=== PATIENT | male | born 1985 ===

== ENCOUNTER 2024-11-19 21:16 | Inpatient (IN) | payer OTHER, SELFPAY ==
--- NOTE | ~2024-11-19 | CT_ITS ---
CLINICAL HISTORY: swollen, tender, suspect fx or septic ankle CT of right ankle without contrast. Comparison: None provided Findings: No acute fracture or subluxation. Ankle mortise and talar dome are maintained. Normal osseous mineralization. No lytic or sclerotic osseous lesions. Moderate soft tissue edema versus cellulitis overlying hindfoot predominant along the lateral margin extending superiorly to the level of the ankle. These inflammatory findings appear to be confined within superficial subcutaneous soft tissues without definite extension into deeper ankle compartments. No abscess or loculated fluid collection. No subcutaneous emphysema. No definite erosions. Impression: 1. Extensive edema/cellulitis within superficial soft tissues overlying visualized hindfoot and ankle. 2. No drainable abscess or fluid collection. 3. No soft tissue emphysema. This document has been electronically signed by: Lois White MD on 11/20/2024 00:02:11
[2024-11-19 21:24] VITALS: BP 120/60; BP 135/70; PULSE 112; PULSE 122; RESP 20; TEMP 37.1; O2SAT 96; O2SAT 97; BMI 20.1
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
--- NOTE | 2024-11-19 22:46 | ED_ITS ---
HPI - Extremity Problem General Chief complaint: Extremity Problem Stated complaint: FOOT SWELLING, ANXIETY AFTER DRUG USE Time Seen by Provider: 11/19/24 22:15 History of Present Illness ED Provider: casey HPI Narrative: . The patient can not report any specific injury or exactly when it started. He denies any redness streaking up the leg but feels that the maximal redness and pain is over the dorsal lateral aspect of the foot and ankle. He can not bear any weight you can barely move the ankle with plantar flexion or dorsiflexion. No previous injuries or surgeries to this area he says 39 M poor historian. Reports 2 days of R ankle/foot pain and swelling Related Data Home Medications ?Medication ?Instructions ?Recorded ?Confirmed aripiprazole 10 mg tablet 10 mg PO QAM 11/20/24 clonazepam 0.5 mg tablet 1 mg PO BID PRN anxiety 10/2811/20/24 fluoxetine 10 mg capsule 10 mg PO DAILY 11/20/2410/28 Previous Rx's ?Medication ?Instructions ?Recorded amoxicillin 875 mg-potassium 1 tab PO Q12H 7 days #14 tabs 11/21/24 clavulanate 125 mg tablet doxycycline monohydrate 100 mg 100 mg PO BID 7 days #1 4 tabs 11/21/24 tablet Allergies Allergy/AdvReac Type Severity Reaction Status Date / Time vancomycin Allergy Severe hives Verified 11/20/24 01:32 [facility] Past Medical History Medical History Marijuana use Crack cocaine use Surgical History History of right hip hemiarthroplasty Social History Social History (Updated 11/20/24 @ 01:42 by IVETTE Perez) Household Members: Family Household Members Other:: Mother Housing: House Do you presently have visiting nurse or other home services: No Patient Tobacco Use Status: Former Tobacco user Second Hand Smoke Exposure: No Substance Use Type: Crack/Cocaine and Marijuana service: No Physical Exam 2 Vital Signs: Vital Signs: Last Vital Signs Temp 97.9 F 11/21/24 12:00 Pulse 94 11/21/24 12:00 Resp 16 11/21/24 12:00 BP 136/83 11/21/24 12:00 Pulse Ox 100 11/21/24 12:00 O2 Del Method Room Air 11/21/24 12:00 Oxygen Flow Rate 0 11/20/24 00:30 BMI result Body Mass Index 20.1 Const: Other: EXAM: Gen: Alert, awake, ,well hydrated. Erratic movements , rocking back and forth. He is awake alert communicative. No obvious or clear toxidrome at this time Head: Atraumatic Eyes: Anicteric, Normal conjunctiva. ENT: Moist mucosa, no pallor. ? Neck: Supple. Skin: ?No observable rash or bruising on exposed or examined skin Respiratory: Breathing comfortably, No distress.Clear to auscultation bilaterally, symmetric chest expansion, No wheeze, rales, ronchi. Cardiovascular: Regular rate and rhythm. No murmurs or rub. Well perfused periphery, warm extremities. No edema. ? Abdominal: No FOCAL TENDERNESS. Soft, no objective distension. No palpable masses or obvious organomegaly. ?No guarding, no rebound tenderness or other peritoneal findings. : No flank tenderness. Neuro: Alert. Gross movement of all extremities intact. ? Psych: Calm. Cooperative. MSK: Right ankle: Moderate to severe tenderness and erythema mostly dorsal lateral right foot and ankle over the malleolar region. Even minimal movements attempting plantar flexion and dorsiflexion cause severe pain. Well-perfused digits. No gross deformity or instability of the joint. Compartments soft in the lower extremity Vital signs: See flowsheet Medications Administered Discontinued Medications Generic Name Dose Route Start Last Admin Trade Name Freq PRN Reason Stop Dose Admin Acetaminophen 975 mg 11/19/24 22:35 11/20/24 00:58 Acetaminophen 325 Mg Tablet PO 11/19/24 22:36 Not Given ONCE ONE Aripiprazole 10 mg 11/20/24 12:00 11/21/24 08:44 Aripiprazole 10 Mg Tablet PO 10 mg DAILY DINA Administration Ceftriaxone Sodium 1 gm 11/19/24 22:44 11/20/24 00:32 Ceftriaxone Sodium 1 Gm Vial IVPUSH 11/19/24 22:45 1 gm ONCE ONE Administration Clonazepam 1 mg 11/20/24 11:54 11/21/24 11:52 Clonazepam 1 Mg Tablet PO 1 mg BID PRN Administration Anxiety Enoxaparin Sodium 40 mg 11/20/24 01:15 11/20/24 04:44 Enoxaparin Sodium 40 Mg/0.4 Ml Syringe SUBCUT Not Given BEDTIME DINA Enoxaparin Sodium 40 mg 11/20/24 05:00 11/20/24 20:09 Enoxaparin Sodium 40 Mg/0.4 Ml Syringe SUBCUT 40 mg BEDTIME DINA Administration Fluoxetine HCl 10 mg 11/21/24 09:00 11/21/24 08:44 Fluoxetine Hcl 10 Mg Capsule PO 10 mg DAILY DINA Administration Vancomycin HCl 1,500 mg/ 500 mls @ 333.333 mls/hr 11/19/24 22:44 11/20/24 01:15 Sodium Chloride IV 11/20/24 00:13 Infused ONCE ONE Infusion Linezolid 600 mg in 300 mls @ 300 mls/hr 11/20/24 02:00 11/20/24 03:40 Zyvox/D5w IV Infused Q12H DINA Infusion Acetaminophen 1,000 mg in 100 mls @ 400 mls/hr 11/20/24 01:54 11/20/24 02:29 Ofirmev IV 11/20/24 02:08 Infused ONCE ONE Infusion Clindamycin Phosphate 600 mg in 50 mls @ 100 mls/hr 11/20/24 12:00 11/21/24 12:49 Cleocin IV Infused Q8H DINA Infusion Ibuprofen 600 mg 11/19/24 22:35 11/20/24 00:58 Ibuprofen 600 Mg Tablet PO 11/19/24 22:36 Not Given ONCE ONE Ketamine HCl 63.503 mg 11/19/24 22:41 11/19/24 23:54 Ketamine Hcl/Ns 50 Mg/5 Ml Syringe 1 mg/kg (63.503 mg) 11/19/24 22:42 63.503 mg IVPUSH Administration ONCE ONE Omeprazole 20 mg 11/20/24 06:30 11/21/24 05:41 Omeprazole 20 Mg Capsule.Dr PO 20 mg DAILY@0630 DINA Administration Potassium Chloride 20 meq 11/20/24 09:00 11/21/24 08:44 Potassium Chloride Er 20 Meq Tab.Er.Prt PO 20 meq DAILY DINA Administration Potassium Chloride 40 meq 11/20/24 05:00 11/20/24 06:09 Potassium Chloride Packet 20 Meq Packet PO 11/20/24 05:01 40 meq ONCE ONE Administration Propofol 100 mg 11/19/24 22:41 11/19/24 23:54 Propofol 200 Mg/20 Ml Vial IVPUSH 11/19/24 22:42 100 mg ONCE ONE Administration Sodium Chloride 3 ml 11/20/24 08:00 11/21/24 09:27 0.9 % Sodium Chloride Flush 3 Ml Syringe IVFLUSH 3 ml QSHIFT [facility] Administration Medical Decision Making Medical Decision Making [facility] Narrative: 39-year-old male I a.m. suspicious that the patient has IV drug use history. No clear toxidrome but he is acting bizarre in the ED. significantly elevated leukocytosis severe pain with any ranging of the right ankle with overlying cellulitis makes me suspicious for ankle septic joint. No hemodynamic instability. Well-perfused digits. Could be synovitis. Less likely necrotizing fasciitis given the lack of rapid spread or hemodynamic instability. No thickened fascia on ultrasound. Ultrasound did reveal what appeared to me to be a small ankle effusion attempt was made to aspirate this with minimal fluid only. We will send this for culture as it is bloody and were unlikely to visualize [facility] [employer] coverage for septic arthritis. Splint for comfort Lab Data [facility] Lab Attestation statement: I reviewed the patient's lab results. 11/21/24 05:47 11/21/24 05:47 Labs: Lab Results 11/19/24 11/19/24 11/20/24 Range/Units 22:50 22:51 00:34 WBC 20.7 H (4.8-10.8) X10*3/uL RBC 3.81 L (4.60-5.80) X10*6/uL Hgb 11.2 L (14.0-18.0) g/dl Hct 34.5 L (42.0-52.0) % MCV 90.6 (80.0-98.0) fL MCH 29.4 (27.0-33.0) pg MCHC 32.5 (31.0-36.0) g/dl RDW 15.2 (11.0-16.0) % Plt Count 384 (160-400) X10*3/uL MPV 8.8 L (9.4-12.4) fL Immature Gran % (Auto) 0.5 H (0.0-0.4) % Neut % (Auto) 84.3 H (45-73) % Lymph % (Auto) 7.2 L (20-40) % [place] % (Auto) 7.0 (2-11) % Eos % (Auto) 0.8 (0-4) % Baso % (Auto) 0.2 (0-2) % Lymph # (Auto) 1.5 (1.2-4.9) X10*3/uL [place] # (Auto) 1.5 H (0.1-1.2) X10*3/uL Eos # (Auto) 0.2 (0.0-0.4) X10*3/uL Baso # (Auto) 0.0 (0.0-0.2) X10*3/uL Abs Immat Gran (auto) 0.10 H (0.00-0.03) X10*3/uL Absolute Neuts (auto) 17.5 H (2.0-8.3) x10*3/uL Absolute Nucleated RBC 0.000 (0.0-0.012) X10*3/uL Nucleated RBC % (auto) 0.0 (0.0-0.2) /100WBC ESR 11 (0-15) MM/HR Sodium 141 (135-145) mmol/L Potassium 3.2 L (3.3-5.1) mmol/L Chloride 108 (96-108) mmol/L Carbon Dioxide 24 (22-29) mmol/L Anion Gap 12 (12-20) BUN 17 H (9-16) mg/dL Creatinine 0.90 (0.5-1.4) mg/dL Estim Creat Clear Calc 98.9 Estimated GFR > 60 Random Glucose 103 (60-115) mg/dL Lactic Acid 1.1 (0.5-2.0) mmol/L Uric Acid 3.9 (3.4-7.0) mg/dL Calcium 8.3 L (8.4-10.2) mg/dL Total Bilirubin 0.3 (0.0-1.0) mg/dL AST 29 (5-37) U/L ALT 26 (0-40) U/L Alkaline Phosphatase 106 (39-117) U/L C-Reactive Protein 4.12 H (< or = 0.50) mg/dL Total Protein 6.3 L (6.5-8.0) g/dL Albumin 4.0 (3.5-5.0) g/dL Synovial Source Cancelled Synovial WBC Cancelled Synovial RBC Cancelled Synovial Neutrophils Cancelled Synovial Lymphocytes Cancelled Synovial Monocytes Cancelled Synovial Basophils Cancelled Synovial Eosinophils Cancelled Synovial Other Cells Cancelled Synovial Glucose Cancelled Synovial Total Protein Cancelled Procedures Procedure Narrative Procedure Narrative: EMERGENCY ULTRASOUND INTERPRETATION- Limited Musculoskeletal [This study was ordered, performed, and interpreted by myself. The study reveals: Impression: Severe dorsal lateral foot and ankle cellulitis. Suggestion of small ankle effusion Indication: Swelling and redness with pain with any movement of the ankle joint Joint Localization for fluid (anechoic): Suggestion of small anechoic collection likely joint effusion of the ankle Muscle: No intramuscular edema or collection Other: Performed by: Esvin Orta MD Images were stored __ Arthrocentesis (synovial fluid aspiration) of the knee can be performed either diagnostically (for identification of the etiology of acute arthritis) or therapeutically (for pain relief, drainage of effusion [email or web address] , or injection of medications). ? PROCEDURE NOTE Procedure: Arthrocentesis Performed by:Esvin Orta MD Indication: rule out septic joint [place] Protocol: a time out was performed and the correct patient and site were verified ? The ? joint was prepped and draped in proper sterile fashion. ? A 18 gauge? needle was used to aspirate fluid from the joint using appropriate anatomic landmarks. ?2 cc of bloody fluid was obtained from the joint. The fluid was then sent to the lab for appropriate studies. The patient tolerated the procedure well, was bandaged, and had no complications. ? Post-Procedure Diagnosis: same as indication Complications: none Estimated Blood Loss:? minimal Specimens Removed: as documented above Prosthetic devices/implants: no Orthopedic Splinting/Casting Injury #1: Side: right Lower Extremity Injury Location: ankle Lower Extremity Immobilizer: posterior splint Additional Comments: Posterior splint for comfort due to severe pain with any ranging of the ankle Discharge Plan Discharge Clinical Impression: Cellulitis Patient Disposition: Admitted As Inpatient Interventions: Admission Worksheet (ED) Last Done: 11/20/24 07:44 Discharge Date/Time: 11/20/24 09:18
[2024-11-19 22:56] LABS: MANUAL DIFF FLAG NO
[2024-11-19 22:58] LABS: Basophils Percent Auto 0.2 % (0-2); Eosinophils Absolute Auto 0.2 X10*3/uL (0.0-0.4); Eosinophils Percent Auto 0.8 % (0-4); Hematocrit 34.5 % (42.0-52.0); Hemoglobin 11.2 g/dl (14.0-18.0); Imm Gran Pct Auto 0.5 % (0.0-0.4); Lymphocytes Absolute Auto 1.5 X10*3/uL (1.2-4.9); Lymphocytes Percent Auto 7.2 % (20-40); Mean Corpuscular HGB Conc 32.5 g/dl (31.0-36.0); Mean Corpuscular Hemoglobin 29.4 pg (27.0-33.0); Mean Corpuscular Volume 90.6 fL (80.0-98.0); Mean Platelet Volume 8.8 fL (9.4-12.4); Monocytes Absolute Auto 1.5 X10*3/uL (0.1-1.2); Neutrophils Absolute Auto 17.5 x10*3/uL (2.0-8.3); Neutrophils Percent Auto 84.3 % (45-73); Platelet Count 384 X10*3/uL (160-400); Red Blood Count 3.81 X10*6/uL (4.60-5.80); Red Cell Distribution Width 15.2 % (11.0-16.0); White Blood Count 20.7 X10*3/uL (4.8-10.8)
[2024-11-19 23:13] LABS: Alanine Aminotransferase 26 U/L (0-40); Alkaline Phosphatase 106 U/L (39-117); Anion Gap 12 (12-20); Aspartate Amino Transferase 29 U/L (5-37); Bilirubin Total 0.3 mg/dL (0.0-1.0); Blood Urea Nitrogen 17 mg/dL (9-16); C Reactive Protein 4.12 mg/dL (< or = 0.50); Calcium 8.3 mg/dL (8.4-10.2); Carbon Dioxide 24 mmol/L (22-29); Chloride 108 mmol/L (96-108); Creatinine Clr Calc Pharmacy 98.9; Estimated Glomerular Filt Rate > 60; Glucose Random 103 mg/dL (60-115); Potassium 3.2 mmol/L (3.3-5.1); Sodium 141 mmol/L (135-145); Total Protein 6.3 g/dL (6.5-8.0)
[2024-11-19 23:13] LABS: Lactic Acid 1.1 mmol/L (0.5-2.0)
[2024-11-19 23:42] LABS: Erythrocyte Sedimentation Rate 11 MM/HR (0-15)
[2024-11-19 23:45] LABS: Uric Acid 3.9 mg/dL (3.4-7.0)
[2024-11-19 23:54] VITALS: PULSE 99
[2024-11-19] MEDS: Ketamine HCl/NS 50 MG/5 ML SYRINGE 63.503 MG IVPUSH (23:54)
[2024-11-19] MEDS: propofoL 200 MG/20 ML VIAL 100 MG IVPUSH (23:54)
[2024-11-19 23:56] VITALS: PULSE 99; RESP 19; TEMP 37; O2SAT 100
[2024-11-20] VITALS (18 sets, daily range): BP systolic 114–136; BP diastolic 72–88; PULSE 72–98; RESP 12–19; TEMP 36.3–37.3; O2SAT 98–100; BMI 20.1
--- NOTE | 2024-11-20 | ECG_ITS ---
Test Reason : R/O ABNORMALITY Blood Pressure : */* mmHG Vent. Rate : 88 BPM Atrial Rate : 88 BPM P-R Int : 116 ms QRS Dur : 84 ms QT Int : 366 ms P-R-T Axes : 59 74 46 degrees QTcB Int : 442 ms Normal sinus rhythm Normal ECG No previous ECGs available Referred By: Marizol Campbell Electronically Signed By: JULIANA MANSFIELD
[2024-11-20] MEDS: cefTRIAXone sodium 1 GM VIAL IVPUSH (00:32)
[2024-11-20] MEDS: vancomycin HCL 1,500 MG in 0.9 % Sodium Chloride 500 ML 333.33 MG IV (00:49)
--- NOTE | 2024-11-20 01:06 | P.HPHOSP_ITS ---
History of Present Illness Date of Service: 11/20/24 Attending physician on admission: Suresh Roldan Chief Complaint: right ankle pain Patient is a 39-year-old male with past medical history right hip surgical repair, unexplained weight loss, illicit drug use including crack cocaine but denies recent IV drug abuse, marijuana use, former tobacco user presents with 2 days of right foot discomfort with inability ambulate. Patient had just undergone conscious sedation with ED provider for aspiration and culture collection of a lateral cellulitis along the malleolus. Patient has been afebrile with no chills. Patient does have a leukocytosis of 20, lactic acid 1.1, CRP 4.[address] of the ankle notes extensive edema and cellulitis within the superficial soft tissues overlying visualized hindfoot and ankle. There is no drainable abscess or fluid collection and no soft tissue emphysema present. The affected leg is currently wrapped, this fha underwriter is unable to view the area. There is a question of synovitis along with a known cellulitis. There is no evidence of swelling or edema or warmth in any of the other joints including the knees left ankle and upper extremities. Patient was started on vancomycin in the emergency department and upon infusion, developed severe hives in the affected arm. Patient had no respiratory symptoms including stridor. Vancomycin was stopped due to the severity of hives. Did not feel comfortable knowing rate and continuing infusion. Antibiotics changed to linezolid and ID consultation placed. Blood cultures are also pending. Patient is somewhat elusive regarding his recent drug use. Patient states he was an IV drug abuser 10 years prior. Patient does not know was HIV or hepatitis status sudden is okay with testing today. Patient does not know how this cellulitis developed in his right lower leg. Per ED provider there were no track breaux on his affected leg. It is not 100% sure that patient did not inject drugs into the affected limb. Patient is currently wired, anxious and states this happens when he uses drugs. His drug of choice is crack cocaine. Toxicology screen pending. There was no murmur on exam. Patient does state he was in [facility] 2 months prior and was told he had a cardiac problem was supposed to follow with a photoengraving sketch maker as an outpatient but patient failed to do so. Currently on telemetry patient has sinus rhythm. EKG will be ordered. Patient will remain on telemetry. Review of Systems 2 Review of Systems: Patient denies any chest pain or shortness of breath at rest or with exertion. Patient denies any nausea, vomiting, abdominal pain or diarrhea. Patient is not having any fever or chills. Patient is a currently in the right lower extremity. Yes all other systems are reviewed and are negative [facility] Medical History Marijuana use Crack cocaine use Functional capacity: independent ambulation (Patient now unable to bear weight on right lower extremity) Pertinent family history: Patient did not elaborate Surgical History History of right hip hemiarthroplasty Social History (Updated 11/20/24 @ 01:42 by IVETTE Perez) Household Members: Family Household Members Other:: Mother Patient Tobacco Use Status: Former Tobacco user Smoked in Last 30 Days: No Use of substances other than those prescribed or required for medical reasons: Yes Substance Use Type: Crack/Cocaine and Marijuana Substance Use Frequency: Daily Last Used Substance: Days (ago) Advance Directives: No Advance Directives Information Provided: No Do you have a plan to hurt others: No Plan Ebola Risk: Travel/Contact With Anyone From Affected Area/s: No Has Patient Experienced Ebola Symptoms: No Meds Allergies Allergy/AdvReac Type Severity Reaction Status Date / Time vancomycin Allergy Severe hives Verified 11/20/24 01:32 Active Medications: Current Medications Acetaminophen (Acetaminophen 325 Mg Tablet) 650 mg PO Q6H PRN PRN Reason: Pain, Mild 1-3,fever,headache Calcium Carbonate (Calcium Carbonate 750 Mg Tab.Chew) 750 mg PO Q4H PRN PRN Reason: Heartburn Melatonin (Melatonin 3 Mg Tablet) 6 mg PO BEDTIME PRN PRN Reason: Insomnia Sodium Chloride (0.9 % Sodium Chloride Flush 3 Ml Syringe) 3 ml IVFLUSH QSHIFT [facility] Physical Exam 2 Vital Signs and Narrative: Vital Signs: Last Vital Signs Temp 98 F 11/20/24 00:30 Pulse 87 11/20/24 01:00 Resp 12 11/20/24 01:00 BP 127/88 11/20/24 01:00 Pulse Ox 100 11/20/24 01:00 O2 Del Method Room Air 11/19/24 21:24 Oxygen Flow Rate 0 11/20/24 01:00 BMI result Body Mass Index 20.1 Alert and appears under the influence, verbal able to follow commands Neuro: CN II-X11 intact, no deficits, visual acuity intact EYES: Pupils constricted, EOM intact, sclerae nonicteric ENT: hearing intact, no issues with swallowing, uvula midline, lips moist, nares patent no epistaxis, dentition in good repair Cardiac: S1 S2 RRR, no murmur, no JVD, no edema in left Lower ext Pulmonary: lungs clear to auscultation B Abdominal: BS active in all 4 quadrants, no guarding, tenderness, rebounding MSK: strength 5/5 upper and L lower extremities : no CVA tenderness no bladder distension Extremities: no edema in L lower extremities, PT and DP pulses palpable +2, right lower extremity currently wrapped and secured. Psych: mood anxious, judgement and insight poor Skin: Multiple tattoos, cellulitis right lower extremity currently covered in dressing status post aspiration Results Labs 11/19/24 22:51 11/19/24 22:51 Labs: Laboratory Results - last 24 hr 11/19/24 11/19/24 11/20/24 22:50 22:51 00:34 MCV 90.6 MCH 29.4 MCHC 32.5 RDW 15.2 Plt Count 384 MPV 8.8 L Immature Gran % (Auto) 0.5 H Neut % (Auto) 84.3 H Lymph % (Auto) 7.2 L [place] % (Auto) 7.0 Eos % (Auto) 0.8 Baso % (Auto) 0.2 Lymph # (Auto) 1.5 [place] # (Auto) 1.5 H Eos # (Auto) 0.2 Baso # (Auto) 0.0 Abs Immat Gran (auto) 0.10 H Absolute Neuts (auto) 17.5 H Absolute Nucleated RBC 0.000 Nucleated RBC % (auto) 0.0 ESR 11 Anion Gap 12 Estim Creat Clear Calc 98.9 Estimated GFR > 60 Random Glucose 103 Lactic Acid 1.1 Uric Acid 3.9 Calcium 8.3 L Total Bilirubin 0.3 AST 29 ALT 26 Alkaline Phosphatase 106 C-Reactive Protein 4.12 H Total Protein 6.3 L Albumin 4.0 Synovial Source Cancelled Synovial WBC Cancelled Synovial RBC Cancelled Synovial Neutrophils Cancelled Synovial Lymphocytes Cancelled Synovial Monocytes Cancelled Synovial Basophils Cancelled Synovial Eosinophils Cancelled Synovial Other Cells Cancelled Synovial Glucose Cancelled Synovial Total Protein Cancelled ECG Prior ECG tracings: not available for review Imaging Radiologist's Impressions: CT of right ankle Impression: 1. Extensive edema/cellulitis within superficial soft tissues overlying visualized hindfoot and ankle. 2. No drainable abscess or fluid collection. 3. No soft tissue emphysema Assessment and Plan (1) Cellulitis: Qualifiers: Laterality: right Site of cellulitis: extremity Site of cellulitis of extremity: lower extremity Qualified Code(s): L03.115 - Cellulitis of right lower limb Status: Acute Plan Patient is a 39-year-old male with past medical history right hip surgical repair, unexplained weight loss, illicit drug use including crack cocaine but denies recent IV drug abuse, marijuana use, former tobacco user is being admitted with cellulitis of right lower extremity with possible synovitis. Unclear how the infection started but patient does have history of IV drug abuse and currently appears under the influence of illicit drugs. Currently patient can not provide a thorough history of his past medical history and surgical history. Patient does live with his mother but there was no answer tonight to review history. Cellulitis right ankle Patient has severe reaction to vancomycin in regards to hives. Change antibiotics to linezolid and will continue ceftriaxone. ID consulted Aspiration sent for cultures, follow. Patient did receive conscious sedation and postprocedure is alert and orientated but anxious. Blood cultures pending UA pending Telemetry No evidence of sepsis as lactic acid is normal and hemodynamics are stable Tylenol prn, 1 dose of Ofirmev s/p conscious sedation Hypokalemia Potassium 3.2 on admission 40 mEq x1 p.o. 20 mEq daily Daily BMP HX IV drug abuse, current crack cocaine use (inhales) Addictions consulted Patient admits to crack cocaine use most recently inhaling has history of IV drug use states 10 years ago No murmur noted on exam, no indication for echo at this time Continue telemetry Cows ordered HIV and Hepatitis panel ordered, pt agreeable Low weight likely secondary to drug use Nutritional consultation placed Ensure b.i.d. added Daily weights DVT prophylaxis: Lovenox PPI prophylaxis: Omeprazole Med rec pending Full Code Quality Stroke Does the patient have a stroke diagnosis?: No Reason for No Anti-thrombotic by Day Two: N/A - Med Ordered VTE Prior VTE?: No VTE Risk Level:: Medical - moderate - high VTE Device Contraindication: Treatment Not Tolerated VTE Drug Contraindication: N/A - Med Ordered
[2024-11-20] MEDS: Acetaminophen 1,000 MG/100 ML PIGGYBACK 400 MG IV (02:14)
[2024-11-20] MEDS: Linezolid/D5W 600 MG/300 ML PIGGYBACK 300 MG IV (02:40)
--- NOTE | 2024-11-20 02:55 | PC.NURSE ---
EKG sent via tiger to [facility]
[2024-11-20 03:19] LABS: Amphetamine Screen Urine Not Detected (Not Detect); Barbiturates, Urine Not Detected (Not Detect); Benzodiazepines Screen Urine Not Detected (Not Detect); Buprenorphine Scr Not Detected (Not Detect); Cannabinoid Screen Urine POSITIVE (Not Detect); Cocaine Screen Urine POSITIVE (Not Detect); Fentanyl, urine POSITIVE (Not Detect); Methadone Screen, Urine Not Detected (Not Detect); Opiate Screen Urine POSITIVE (Not Detect); Oxycodone Screen Urine Not Detected (Not Detect); Phencyclidine Screen Urine Not Detected (Not Detect)
--- NOTE | 2024-11-20 03:19 | PC.NURSE ---
right arm hives from vanco infusion assessed by ICE CARVER Marizol. vanco stopped. linezolid ordered. hives resolved within 30 mins. no other allergic reaction symptoms. per ICE CARVER, possibly can resume vanco during day time. ID consulted.
[2024-11-20 03:26] LABS: Appearance Urine Clear; Color Urine Yellow; Glucose Urine UA Negative (Negative); Leukocyte Esterase Urine Negative (Negative); Nitrite Urine Negative (Negative); PH 5.5 (5.0-9.0); Urine Blood Negative (Negative); Urine Ketones Negative (Negative); Urine Protein Negative (Neg-Trace)
[2024-11-20 05:26] LABS: MANUAL DIFF FLAG NO
[2024-11-20 05:30] LABS: Basophils Absolute Auto 0.1 X10*3/uL (0.0-0.2); Basophils Percent Auto 0.3 % (0-2); Eosinophils Absolute Auto 0.2 X10*3/uL (0.0-0.4); Eosinophils Percent Auto 0.8 % (0-4); Hemoglobin 12.3 g/dl (14.0-18.0); Imm Gran Abs Auto 0.08 X10*3/uL (0.00-0.03); Imm Gran Pct Auto 0.4 % (0.0-0.4); Lymphocytes Absolute Auto 2.3 X10*3/uL (1.2-4.9); Lymphocytes Percent Auto 12.2 % (20-40); Mean Corpuscular HGB Conc 31.5 g/dl (31.0-36.0); Mean Corpuscular Hemoglobin 29.1 pg (27.0-33.0); Mean Corpuscular Volume 92.4 fL (80.0-98.0); Mean Platelet Volume 9.2 fL (9.4-12.4); Monocytes Absolute Auto 1.5 X10*3/uL (0.1-1.2); Monocytes Percent Auto 7.8 % (2-11); Neutrophils Percent Auto 78.5 % (45-73); Platelet Count 438 X10*3/uL (160-400); Red Blood Count 4.22 X10*6/uL (4.60-5.80); Red Cell Distribution Width 15.3 % (11.0-16.0); White Blood Count 19.1 X10*3/uL (4.8-10.8)
[2024-11-20 05:46] LABS: Magnesium 1.7 mg/dL (1.6-2.6)
[2024-11-20 05:50] LABS: Alanine Aminotransferase 21 U/L (0-40); Albumin Level 3.6 g/dL (3.5-5.0); Alkaline Phosphatase 93 U/L (39-117); Anion Gap 12 (12-20); Aspartate Amino Transferase 25 U/L (5-37); Bilirubin Total 0.5 mg/dL (0.0-1.0); Blood Urea Nitrogen 12 mg/dL (9-16); Calcium 8.4 mg/dL (8.4-10.2); Carbon Dioxide 25 mmol/L (22-29); Chloride 109 mmol/L (96-108); Creatinine Clr Calc Pharmacy 115.6; Estimated Glomerular Filt Rate > 60; Glucose Random 105 mg/dL (60-115); Potassium 3.6 mmol/L (3.3-5.1); Sodium 142 mmol/L (135-145)
[2024-11-20] MEDS: Potassium Chloride Packet 20 MEQ PACKET 40 MEQ PO (06:09)
[2024-11-20] MEDS: Omeprazole 20 MG CAPSULE.DR PO (06:09)
--- NOTE | 2024-11-20 06:14 | PC.NURSE ---
arouses to voice. VSS. accepted meds except lovenox because he hates needles. education provided and pt verbalized understanding. still refuses. provided with warm blankets, states needs are met. still refuses. COUNSELING PROGRAM LEADER Marizol notified
--- NOTE | 2024-11-20 08:07 | PHA.MEDREC ---
Pharmacy Consult ? Medication Reconciliation Pharmacy has completed the medication reconciliation. Patient very drowsy but confirmed meds
[2024-11-20 08:18] LABS: HBS Num1 31.82 mIU/mL (0-7.99); HBc Num1 0.05 S/CO (0.00-0.79); HBsAGNum1 0.49 S/CO (0.00-0.99); HIV AB/AG Nonreactive (Nonreactive); HIV Num 1 0.06 S/CO (0.00-0.99); Hepatitis A Antibody IgM 0.18 Index (0-0.79); Hepatitis B Core Antibody Nonreactive (Nonreactive); Hepatitis B Surface Antigen Negative (Negative); ~HepC Num1 9.43 S/CO (0.00-0.79); ~Hepatitis A Antibody IgM Nonreactive (Nonreactive); ~Hepatitis B Surface Antibody REACTIVE (Nonreactive); ~Hepatitis C Antibody Reactive (Nonreactive)
[2024-11-20] MEDS: 0.9 % Sodium Chloride Flush 3 ML SYRINGE IVFLUSH ×3 (09:38→20:09)
[2024-11-20] MEDS: Potassium Chloride ER 20 MEQ TAB.ER.PRT PO (09:40)
--- NOTE | 2024-11-20 10:02 | HO.ADDICT_ITS ---
History of Present Illness Date of Service: 11/20/2024 Chief Complaint: Foot Pain Reason for Consult: Substance use Sources of Information: patient interviewed and chart reviewed HPI Narrative: Patient is a 39 year old male who presented to [facility] ED complaining of foot pain, subsequently admitted with cellulitis. Consult requested as patient reported ongoing cocaine use, and UDS +fentanyl and cocaine. Patient seen in room 359. He was initially asleep, however woke easily to voice and was eating a sandwich during interview. He appears overall comfortable, no diaphoresis or restlessness noted. Abrasions noted to the bridge of his nose. He reports cocaine use, both IN and inhalation. Denies any opiate use, states that he does have history of OUD and was taking methadone up until a few months ago when he states he tapered off completely. He denies any withdrawal sx. Discussed restarting methadone, and patient declined stating he does not wish to restart because he only use cocaine . T/w advised patient that UDS was +for opiates and patient replied okay . He politely declined ACS intervention. Labs reviewed-Hepatitis C screen + (history of IVDU--denies current IVDU) Medical Evaluation Reviewed: Yes Review of Systems Constitutional: Reports as per HPI and Reports no additional constitutional complaints Diagnostics Vital Signs (24Hr): Vital Signs - 24 hr 11/19/24 21:24 11/19/24 23:54 11/19/24 23:56 Temperature 98.7 F 98.6 F Pulse Rate 112 H 99 99 Respiratory Rate 20 19 Blood Pressure 120/60 Pulse Oximetry 96 100 Oxygen Delivery Method Room Air 11/20/24 00:05 11/20/24 00:10 11/20/24 00:15 Temperature 98.2 F 98.2 F 98.2 F Pulse Rate 97 98 94 Respiratory Rate 19 17 14 Blood Pressure 129/78 116/83 127/80 Pulse Oximetry 100 100 100 Oxygen Delivery Method 11/20/24 00:20 11/20/24 00:25 11/20/24 00:30 Temperature 98.2 F 98 F 98 F Pulse Rate 95 95 96 Respiratory Rate 15 14 15 Blood Pressure 119/81 123/77 121/79 Pulse Oximetry 100 100 100 Oxygen Delivery Method 11/20/24 00:45 11/20/24 01:00 11/20/24 03:01 Temperature 97.8 F Pulse Rate 87 87 92 Respiratory Rate 13 12 13 Blood Pressure 124/88 127/88 114/78 Pulse Oximetry 100 100 100 Oxygen Delivery Method Room Air 11/20/24 05:44 11/20/24 07:54 11/20/24 09:31 Temperature 97.4 F 97.7 F 98 F Pulse Rate 72 76 73 Respiratory Rate 17 18 16 Blood Pressure 121/84 127/85 136/73 Pulse Oximetry 99 98 99 Oxygen Delivery Method Room Air Room Air Room Air BMI result Body Mass Index 20.1 Labs 11/20/24 05:03 11/20/24 05:03 Labs: Laboratory Results - last 48 hr 11/19/24 11/19/24 11/20/24 22:50 22:51 00:34 WBC 20.7 H RBC 3.81 L Hgb 11.2 L Hct 34.5 L MCV 90.6 MCH 29.4 MCHC 32.5 RDW 15.2 Plt Count 384 MPV 8.8 L Immature Gran % (Auto) 0.5 H Neut % (Auto) 84.3 H Lymph % (Auto) 7.2 L [place] % (Auto) 7.0 Eos % (Auto) 0.8 Baso % (Auto) 0.2 Lymph # (Auto) 1.5 [place] # (Auto) 1.5 H Eos # (Auto) 0.2 Baso # (Auto) 0.0 Abs Immat Gran (auto) 0.10 H Absolute Neuts (auto) 17.5 H Absolute Nucleated RBC 0.000 Nucleated RBC % (auto) 0.0 ESR 11 Sodium 141 Potassium 3.2 L Chloride 108 Carbon Dioxide 24 Anion Gap 12 BUN 17 H Creatinine 0.90 Estim Creat Clear Calc 98.9 Estimated GFR > 60 Random Glucose 103 Lactic Acid 1.1 Uric Acid 3.9 Calcium 8.3 L Magnesium Total Bilirubin 0.3 AST 29 ALT 26 Alkaline Phosphatase 106 C-Reactive Protein 4.12 H Total Protein 6.3 L Albumin 4.0 Urine Color Urine Appearance Urine pH Ur Specific [place] Urine Protein Urine Glucose (UA) Urine Ketones Urine Blood Urine Nitrite Ur Leukocyte Esterase Synovial Source Cancelled Synovial WBC Cancelled Synovial RBC Cancelled Synovial Neutrophils Cancelled Synovial Lymphocytes Cancelled Synovial Monocytes Cancelled Synovial Basophils Cancelled Synovial Eosinophils Cancelled Synovial Other Cells Cancelled Synovial Glucose Cancelled Synovial Total Protein Cancelled Urine Opiates Screen Ur Buprenorphine Scrn Ur Oxycodone Screen Urine Methadone Screen Urine Fentanyl Screen Ur Barbiturates Screen Ur Phencyclidine Scrn Ur Amphetamines Screen U Benzodiazepines Scrn Urine Cocaine Screen U Marijuana (THC) Screen Hepatitis A IgM Ab Hep Bs Antigen Hep Bs Antibody Hep B Core Total Ab Hepatitis C Ab (EIA) HIV 1&2 Ab/P24 Ag 4thGn 11/20/24 11/20/24 02:57 05:03 WBC 19.1 H RBC 4.22 L Hgb 12.3 L Hct 39.0 L MCV 92.4 MCH 29.1 MCHC 31.5 RDW 15.3 Plt Count 438 H MPV 9.2 L Immature Gran % (Auto) 0.4 Neut % (Auto) 78.5 H Lymph % (Auto) 12.2 L [place] % (Auto) 7.8 Eos % (Auto) 0.8 Baso % (Auto) 0.3 Lymph # (Auto) 2.3 [place] # (Auto) 1.5 H Eos # (Auto) 0.2 Baso # (Auto) 0.1 Abs Immat Gran (auto) 0.08 H Absolute Neuts (auto) 15.0 H Absolute Nucleated RBC 0.000 Nucleated RBC % (auto) 0.0 ESR Sodium 142 Potassium 3.6 Chloride 109 H Carbon Dioxide 25 Anion Gap 12 BUN 12 Creatinine 0.77 Estim Creat Clear Calc 115.6 Estimated GFR > 60 Random Glucose 105 Lactic Acid Uric Acid Calcium 8.4 Magnesium 1.7 Total Bilirubin 0.5 AST 25 ALT 21 Alkaline Phosphatase 93 C-Reactive Protein Total Protein 6.0 L Albumin 3.6 Urine Color Yellow Urine Appearance Clear Urine pH 5.5 Ur Specific [place] 1.020 Urine Protein Negative Urine Glucose (UA) Negative Urine Ketones Negative Urine Blood Negative Urine Nitrite Negative Ur Leukocyte Esterase Negative Synovial Source Synovial WBC Synovial RBC Synovial Neutrophils Synovial Lymphocytes Synovial Monocytes Synovial Basophils Synovial Eosinophils Synovial Other Cells Synovial Glucose Synovial Total Protein Urine Opiates Screen POSITIVE H Ur Buprenorphine Scrn Not Detected Ur Oxycodone Screen Not Detected Urine Methadone Screen Not Detected Urine Fentanyl Screen POSITIVE H Ur Barbiturates Screen Not Detected Ur Phencyclidine Scrn Not Detected Ur Amphetamines Screen Not Detected U Benzodiazepines Scrn Not Detected Urine Cocaine Screen POSITIVE H U Marijuana (THC) Screen POSITIVE H Hepatitis A IgM Ab Nonreactive Hep Bs Antigen Negative Hep Bs Antibody REACTIVE Hep B Core Total Ab Nonreactive Hepatitis C Ab (EIA) Reactive H HIV 1&2 Ab/P24 Ag 4thGn Nonreactive Mental Status Exam Mental Status Exam Level of Consciousness: Awake, Appropriate and Alert Patient Behavior: Appropriate and Guarded Affect Description: Calm Speech Pattern: Clear Hallucinations: None Thought Process: Intact Thought Content: positive for Intact Judgement: Fair Medications Medications Current Medications Acetaminophen (Acetaminophen 325 Mg Tablet) 650 mg PO Q6H PRN PRN Reason: Pain, Mild 1-3,fever,headache Albuterol/Ipratropium (Albuterol/Iprat 2.5/0.5mg 3 Ml Ampul.Neb) 3 ml INHALE Q4H PRN PRN Reason: Shortness of Breath/Wheezing Calcium Carbonate (Calcium Carbonate 750 Mg Tab.Chew) 750 mg PO Q4H PRN PRN Reason: Heartburn Ceftriaxone Sodium (Ceftriaxone Sodium 1 Gm Vial) 1 gm IVPUSH Q24H [facility] Enoxaparin Sodium (Enoxaparin Sodium 40 Mg/0.4 Ml Syringe) 40 mg SUBCUT BEDTIME [facility] Last Admin: 11/20/24 06:11 Dose: Not Given Linezolid (Zyvox/D5w) 600 mg in 300 mls @ 300 mls/hr IV Q12H [facility] Last Infusion: 11/20/24 03:40 Dose: Infused Magnesium Hydroxide (Milk Of Magnesia 30 Ml Oral.Susp) 30 ml PO DAILY PRN PRN Reason: Constipation Melatonin (Melatonin 3 Mg Tablet) 6 mg PO BEDTIME PRN PRN Reason: Insomnia Omeprazole (Omeprazole 20 Mg Capsule.Dr) 20 mg PO DAILY@0630 [facility] Last Admin: 11/20/24 06:09 Dose: 20 mg Ondansetron HCl (Ondansetron Hcl 4 Mg/2 Ml Vial) 4 mg IVPUSH Q8H PRN PRN Reason: Nausea and Vomiting Potassium Chloride (Potassium Chloride Er 20 Meq Tab.Er.Prt) 20 meq PO DAILY [facility] Last Admin: 11/20/24 09:40 Dose: 20 meq Sodium Chloride (0.9 % Sodium Chloride Flush 3 Ml Syringe) 3 ml IVFLUSH QSHIFT [facility] Last Admin: 11/20/24 09:38 Dose: 3 ml Allergies Allergies Allergy/AdvReac Type Severity Reaction Status Date / Time vancomycin Allergy Severe hives Verified 11/20/24 01:32 Assessment & Plan Assessment & Plan (1) Cocaine use disorder: Status: Acute Code(s): F14.10 - Cocaine abuse, uncomplicated Assessment and Plan: * patient declines medications for [facility] treatment --aware that UDS + opiates declined methadone or buprenorphine start. Declines appt for [facility] follow up treatment * encouraged to notify RN if withdrawal sx develop or if he changes his mind in general * take home narcan at discharge --higher risk for overdose given that he is no longer prescribed MOUD * encourage hydration at discharge with ongoing stimulant use Total time managing care of this patient today __25__ minutes. PMFSH Past Medical History Medical History Marijuana use Crack cocaine use Surgical History Surgical History History of right hip hemiarthroplasty Social History Social History (Updated 11/20/24 @ 01:42 by IVETTE Perez) Household Members: Family Household Members Other:: Mother Housing: House Do you presently have visiting nurse or other home services: No Patient Tobacco Use Status: Former Tobacco user Second Hand Smoke Exposure: No Substance Use Type: Crack/Cocaine and Marijuana service: No
--- NOTE | 2024-11-20 10:48 | MHC.CLN ---
CONSULT FOR REPORTED WEIGHT LOSS. PER PROVIDER NOTE, LOW WEIGHT LIKELY SECONDARY TO DRUG ABUSE. UPON ADM, POSITIVE FOR OPIATES, FENTANLY, COCAINE, MARIJUANA. LIKELY POOR PO IN THE COMMUNITY DUE TO DRUG ABUSE. CHANGING DIET TO REGULAR WITH ENSURE TID TO PROMOTE PO INTAKE. SUPPLEMENT PROVIDES 10[address], [address] TO MONITOR WEEKLY.
--- NOTE | 2024-11-20 11:02 | MHC.CM.PN ---
PT LIVES WITH MOTHER IS INDEPEDENT HAS OWN RIDE ,WILL BE SEEN BY CARE TEAM PRIOR TO DC DC PLAN HOME
--- NOTE | 2024-11-20 11:48 | HO.PM.IMPN ---
Subjective Subjective Date of Service: 11/20/24 Interval History: seen and evaluated this morning for RLE cellulitis feels little better still weak and sleepy refused addiction team advice no other events Review of Systems Review of Systems: Yes all other systems are reviewed and are negative Physical Exam Vital Signs: Vital Signs: Last Vital Signs Temp 98 F 11/20/24 09:31 Pulse 73 11/20/24 09:31 Resp 16 11/20/24 09:31 BP 136/73 11/20/24 09:31 Pulse Ox 99 11/20/24 09:31 O2 Del Method Room Air 11/20/24 09:31 Oxygen Flow Rate 0 11/20/24 01:00 BMI result Body Mass Index 20.1 Const: Other: Constitutional : Awake, interactive, not in distress Neck : Normal inspection, Supple Cardiovascular : RRR, no JVP, no lower extremity edema Respiratory : good bilateral air entry, no crackles, wheezes or rhonchi Gastrointestinal: soft, lax, Normal bowel sounds, Non tender Skin : Warm, Dry, right foot erythema and swelling improving, no drainage note, still warm and tender to touch Neurological : Alert & oriented x3, No focal deficit Objective Data Active Medications Acetaminophen (Acetaminophen 325 Mg Tablet) 650 mg PO Q6H PRN PRN Reason: Pain, Mild 1-3,fever,headache Albuterol/Ipratropium (Albuterol/Iprat 2.5/0.5mg 3 Ml Ampul.Neb) 3 ml INHALE Q4H PRN PRN Reason: Shortness of Breath/Wheezing Calcium Carbonate (Calcium Carbonate 750 Mg Tab.Chew) 750 mg PO Q4H PRN PRN Reason: Heartburn Ceftriaxone Sodium (Ceftriaxone Sodium 1 Gm Vial) 1 gm IVPUSH Q24H [facility] Enoxaparin Sodium (Enoxaparin Sodium 40 Mg/0.4 Ml Syringe) 40 mg SUBCUT BEDTIME [facility] Last Admin: 11/20/24 06:11 Dose: Not Given Documented By: DAGO Non-Admin Reason: Patient Refused Linezolid (Zyvox/D5w) 600 mg in 300 mls @ 300 mls/hr IV Q12H [facility] Last Infusion: 11/20/24 03:40 Dose: Infused Documented By: DAGO Magnesium Hydroxide (Milk Of Magnesia 30 Ml Oral.Susp) 30 ml PO DAILY PRN PRN Reason: Constipation Melatonin (Melatonin 3 Mg Tablet) 6 mg PO BEDTIME PRN PRN Reason: Insomnia Omeprazole (Omeprazole 20 Mg Capsule.Dr) 20 mg PO DAILY@0630 [facility] Last Admin: 11/20/24 06:09 Dose: 20 mg Documented By: DAGO Ondansetron HCl (Ondansetron Hcl 4 Mg/2 Ml Vial) 4 mg IVPUSH Q8H PRN PRN Reason: Nausea and Vomiting Potassium Chloride (Potassium Chloride Er 20 Meq Tab.Er.Prt) 20 meq PO DAILY [facility] Last Admin: 11/20/24 09:40 Dose: 20 meq Documented By: TAMI Sodium Chloride (0.9 % Sodium Chloride Flush 3 Ml Syringe) 3 ml IVFLUSH QSHIFT [facility] Last Admin: 11/20/24 09:38 Dose: 3 ml Documented By: TAMI Labs 11/20/24 05:03 11/20/24 05:03 Labs: Laboratory Results - last 24 hr 11/19/24 11/19/24 11/20/24 22:50 22:51 00:34 MCV 90.6 MCH 29.4 MCHC 32.5 RDW 15.2 Plt Count 384 MPV 8.8 L Immature Gran % (Auto) 0.5 H Neut % (Auto) 84.3 H Lymph % (Auto) 7.2 L [place] % (Auto) 7.0 Eos % (Auto) 0.8 Baso % (Auto) 0.2 Lymph # (Auto) 1.5 [place] # (Auto) 1.5 H Eos # (Auto) 0.2 Baso # (Auto) 0.0 Abs Immat Gran (auto) 0.10 H Absolute Neuts (auto) 17.5 H Absolute Nucleated RBC 0.000 Nucleated RBC % (auto) 0.0 ESR 11 Anion Gap 12 Estim Creat Clear Calc 98.9 Estimated GFR > 60 Random Glucose 103 Lactic Acid 1.1 Uric Acid 3.9 Calcium 8.3 L Magnesium Total Bilirubin 0.3 AST 29 ALT 26 Alkaline Phosphatase 106 C-Reactive Protein 4.12 H Total Protein 6.3 L Albumin 4.0 Urine Color Urine Appearance Urine pH Ur Specific [place] Urine Protein Urine Glucose (UA) Urine Ketones Urine Blood Urine Nitrite Ur Leukocyte Esterase Synovial Source Cancelled Synovial WBC Cancelled Synovial RBC Cancelled Synovial Neutrophils Cancelled Synovial Lymphocytes Cancelled Synovial Monocytes Cancelled Synovial Basophils Cancelled Synovial Eosinophils Cancelled Synovial Other Cells Cancelled Synovial Glucose Cancelled Synovial Total Protein Cancelled Urine Opiates Screen Ur Buprenorphine Scrn Ur Oxycodone Screen Urine Methadone Screen Urine Fentanyl Screen Ur Barbiturates Screen Ur Phencyclidine Scrn Ur Amphetamines Screen U Benzodiazepines Scrn Urine Cocaine Screen U Marijuana (THC) Screen Hepatitis A IgM Ab Hep Bs Antigen Hep Bs Antibody Hep B Core Total Ab Hepatitis C Ab (EIA) HIV 1&2 Ab/P24 Ag 4thGn 11/20/24 11/20/24 02:57 05:03 MCV 92.4 MCH 29.1 MCHC 31.5 RDW 15.3 Plt Count 438 H MPV 9.2 L Immature Gran % (Auto) 0.4 Neut % (Auto) 78.5 H Lymph % (Auto) 12.2 L [place] % (Auto) 7.8 Eos % (Auto) 0.8 Baso % (Auto) 0.3 Lymph # (Auto) 2.3 [place] # (Auto) 1.5 H Eos # (Auto) 0.2 Baso # (Auto) 0.1 Abs Immat Gran (auto) 0.08 H Absolute Neuts (auto) 15.0 H Absolute Nucleated RBC 0.000 Nucleated RBC % (auto) 0.0 ESR Anion Gap 12 Estim Creat Clear Calc 115.6 Estimated GFR > 60 Random Glucose 105 Lactic Acid Uric Acid Calcium 8.4 Magnesium 1.7 Total Bilirubin 0.5 AST 25 ALT 21 Alkaline Phosphatase 93 C-Reactive Protein Total Protein 6.0 L Albumin 3.6 Urine Color Yellow Urine Appearance Clear Urine pH 5.5 Ur Specific [place] 1.020 Urine Protein Negative Urine Glucose (UA) Negative Urine Ketones Negative Urine Blood Negative Urine Nitrite Negative Ur Leukocyte Esterase Negative Synovial Source Synovial WBC Synovial RBC Synovial Neutrophils Synovial Lymphocytes Synovial Monocytes Synovial Basophils Synovial Eosinophils Synovial Other Cells Synovial Glucose Synovial Total Protein Urine Opiates Screen POSITIVE H Ur Buprenorphine Scrn Not Detected Ur Oxycodone Screen Not Detected Urine Methadone Screen Not Detected Urine Fentanyl Screen POSITIVE H Ur Barbiturates Screen Not Detected Ur Phencyclidine Scrn Not Detected Ur Amphetamines Screen Not Detected U Benzodiazepines Scrn Not Detected Urine Cocaine Screen POSITIVE H U Marijuana (THC) Screen POSITIVE H Hepatitis A IgM Ab Nonreactive Hep Bs Antigen Negative Hep Bs Antibody REACTIVE Hep B Core Total Ab Nonreactive Hepatitis C Ab (EIA) Reactive H HIV 1&2 Ab/P24 Ag 4thGn Nonreactive Microbiology Microbiology Results: Microbiology 11/20/24 00:34 Fluid Crystals - Final Ankle Aspirate - Right Assessment and Plan (1) Crack cocaine use: Status: Acute (2) Cocaine use disorder: Status: Acute (3) Cellulitis: Status: Acute (4) Drug abuse: Status: Acute Plan Patient is a 39-year-old male with past medical history right hip surgical repair, unexplained weight loss, illicit drug use including crack cocaine but denies recent IV drug abuse, marijuana use, former tobacco user is being admitted with cellulitis of right lower extremity with possible synovitis. Unclear how the infection started but patient does have history of IV drug abuse and currently appears under the influence of illicit drugs. Currently patient can not provide a thorough history of his past medical history and surgical history. Patient does live with his mother but there was no answer tonight to review history. Cellulitis right ankle Not septic Aspiration (Ankle\Knee) sent for cultures, to follow. Blood cultures pending He had severe reaction to vancomycin as hives, Dcd On IV linezolid and Ceftriaxone. (to switch to CLindamycin only as he is at risk of serotonin syndrome with Zyvox) Denies IV drug use Tylenol prn Acute Hypokalemia resolved with replacement Daily BMP HX IV drug abuse, current crack cocaine use (inhales) Addictions consulted Patient admits to crack cocaine use most recently inhaling has history of IV drug use states 10 years ago No murmur noted on exam, no indication for echo at this time Continue telemetry Cows ordered HIV and Hepatitis panel ordered refused MEthadone\suboxone offered by addiction team Low weight likely secondary to drug use Nutritional consultation placed Ensure b.i.d. added Daily weights DVT prophylaxis: Lovenox PPI prophylaxis: Omeprazole Full Code The patient will need overnight stay for treatment of Cellulitis on IV antibiotics and monitor for possible cocaine\opioid abuse Quality Stroke Does the patient have a stroke diagnosis?: No Reason for No Anti-thrombotic by Day Two: N/A - Med Ordered VTE Prior VTE?: No VTE Risk Level:: Medical - moderate - high VTE Device Contraindication: Treatment Not Tolerated VTE Drug Contraindication: N/A - Med Ordered
[2024-11-20] MEDS: Clindamycin Phosphate/D5W 600 MG/50 ML PIGGYBACK 100 MG IV ×2 (12:18→20:08)
[2024-11-20] MEDS: ARIPiprazole 10 MG TABLET PO (12:18)
[2024-11-20] MEDS: Enoxaparin Sodium 40 MG/0.4 ML SYRINGE SUBCUT (20:09)
[2024-11-21] VITALS: PULSE 88
[2024-11-21 03:55] VITALS: BP 129/81; PULSE 94; RESP 18; TEMP 36.9; O2SAT 99
[2024-11-21] MEDS: Clindamycin Phosphate/D5W 600 MG/50 ML PIGGYBACK 100 MG IV ×2 (03:55→12:10)
[2024-11-21] MEDS: Omeprazole 20 MG CAPSULE.DR PO (05:41)
[2024-11-21 06:01] LABS: MANUAL DIFF FLAG NO
[2024-11-21 06:21] LABS: Basophils Percent Auto 0.2 % (0-2); Eosinophils Absolute Auto 0.1 X10*3/uL (0.0-0.4); Eosinophils Percent Auto 0.6 % (0-4); Hematocrit 38.2 % (42.0-52.0); Hemoglobin 12.1 g/dl (14.0-18.0); Imm Gran Abs Auto 0.05 X10*3/uL (0.00-0.03); Imm Gran Pct Auto 0.4 % (0.0-0.4); Lymphocytes Absolute Auto 1.2 X10*3/uL (1.2-4.9); Lymphocytes Percent Auto 9.4 % (20-40); Mean Corpuscular HGB Conc 31.7 g/dl (31.0-36.0); Mean Corpuscular Hemoglobin 28.9 pg (27.0-33.0); Mean Corpuscular Volume 91.2 fL (80.0-98.0); Monocytes Absolute Auto 0.9 X10*3/uL (0.1-1.2); Monocytes Percent Auto 6.7 % (2-11); Neutrophils Absolute Auto 10.6 x10*3/uL (2.0-8.3); Neutrophils Percent Auto 82.7 % (45-73); Platelet Count 263 X10*3/uL (160-400); Red Blood Count 4.19 X10*6/uL (4.60-5.80); Red Cell Distribution Width 15.4 % (11.0-16.0); White Blood Count 12.8 X10*3/uL (4.8-10.8)
[2024-11-21 06:28] LABS: Anion Gap 13 (12-20); Blood Urea Nitrogen 9 mg/dL (9-16); Calcium 8.9 mg/dL (8.4-10.2); Carbon Dioxide 24 mmol/L (22-29); Chloride 107 mmol/L (96-108); Creatinine Clr Calc Pharmacy 130.9; Estimated Glomerular Filt Rate > 60; Glucose Random 129 mg/dL (60-115); Sodium 140 mmol/L (135-145)
[2024-11-21 07:31] VITALS: BP 142/84; PULSE 91; RESP 15; TEMP 36.8; O2SAT 99
[2024-11-21 07:48] VITALS: PULSE 86
[2024-11-21] MEDS: Potassium Chloride ER 20 MEQ TAB.ER.PRT PO (08:44)
[2024-11-21] MEDS: FLUoxetine HCl 10 MG CAPSULE PO (08:44)
[2024-11-21] MEDS: ARIPiprazole 10 MG TABLET PO (08:44)
[2024-11-21] MEDS: 0.9 % Sodium Chloride Flush 3 ML SYRINGE IVFLUSH (09:27)
--- NOTE | 2024-11-21 10:21 | MHC.CM.PN ---
Addendum entered by Ama Ignacio 11/21/24 14:40: PT LEFT AMA PTS MOTHER DID ATTEMPT TO SPEAK TO CM HOWEVER WAS NOTIFIED THE PT DID NOT PROVIDE PERMISSION FOR HER TO RECEIVE UPDATES Original Note: CM RECEIVED A CALL FROM PTS MOTHER, MILO [phone] WHO EXPRESSED CONCERN THAT THE PT MAY BE DISCHARGED TODAY CM EXPLAINED THAT PTS CASE COULD NOT BE DISCUSSED WITH HER HE IS AN ADULT OF SOUND MIND SHE SAYS SHE DOES NOT THINK HE HAS A SOUND MIND SINCE HE HAS BEEN USING DRUGS FOR 22 YEARS CM EXPLAINED EVERY PT WITH AN ADDICTION HISTORY WOULD HAVE THE OPTION TO MEET WITH SOMEONE FROM ADDICTION SERVICES AND BE OFFERED REFERRALS SHE SAYS SHE WAS HOPING HE WOULD BE HERE FOR AT LEAST A FEW DAYS TO DETOX FROM THE COCAINE, SHE SAYS HE USED TO USE HEROIN, BUT NOW ONLY USES COCAINE CM EXPLAINED AGAIN THAT PTS CASE COULD NOT BE DISCUSSED AND ENDED PHONE CALL, MILO ASKED CM TO MEET WITH PT ABOUT A PROGRAM AND CALL HER BACK CM MET WITH PT AFTER ROUNDS, HE INITIALLY SAID MAYBE HE WOULD WANT A PROGRAM, BUT AFTER MORE DISCUSSION, STATES I JUST WANT TO GO HOME TODAY. PT STATES HE DOES NOT WANT INFORMATION SHARED WITH HIS MOTHER AND CONFIRMS SHE WILL BE PICKING HIM UP AT [place]
--- NOTE | 2024-11-21 10:28 | PM.EVENT ---
Event Note Date of Service: 11/21/24 Event Note: 39-year-old male admitted to the hospital for cellulitis of right foot Ankle was aspirated in the ED last night with negative Gram stain, negative cultures so far, and negative crystals Patient was placed in a splint in the ED, this can be removed Treat with antibiotics for cellulitis No acute orthopedic intervention indicated at this time Time Spent With Patient Time: Total time managing care of this patient today ____ minutes.
[2024-11-21] MEDS: clonazePAM 1 MG TABLET PO (11:52)
[2024-11-21 12:00] VITALS: BP 136/83; PULSE 94; RESP 16; TEMP 36.6; O2SAT 100
--- NOTE | 2024-11-21 13:52 | P.PNIM_ITS ---
Subjective Subjective Date of Service: 11/21/24 Interval History: Seen and examined this morning Follow-up for right ankle cellulitis Splint initially in place, splint removed, revealed edema, erythema of dorsal surface of right foot and right ankle Denies fever, chills Constitutional Constitutional: Denies chills and Denies fever(s) Physical Exam 2 Vital Signs: Vital Signs: Last Vital Signs Temp 97.9 F 11/21/24 12:00 Pulse 94 11/21/24 12:00 Resp 16 11/21/24 12:00 BP 136/83 11/21/24 12:00 Pulse Ox 100 11/21/24 12:00 O2 Del Method Room Air 11/21/24 12:00 Oxygen Flow Rate 0 11/20/24 01:00 BMI result Body Mass Index 20.1 Const: General: cooperative, alert and awake Nutritional Appearance: a verage body habitus Orientation/consciousness: patient oriented x3 Resp: Effort & Inspection: normal respiratory effort, able to speak in complete sentences, no respiratory distress and no use of accessory muscles Cardio: Rate: regular rate Skin: Other: right foot and ankle with swelling and erythema; no brusing Neuro: General: patient oriented x3, moves all extremities and CN's II-XI intact bilaterally Objective Data Active Medications Acetaminophen (Acetaminophen 325 Mg Tablet) 650 mg PO Q6H PRN PRN Reason: Pain, Mild 1-3,fever,headache Albuterol/Ipratropium (Albuterol/Iprat 2.5/0.5mg 3 Ml Ampul.Neb) 3 ml INHALE Q4H PRN PRN Reason: Shortness of Breath/Wheezing Aripiprazole (Aripiprazole 10 Mg Tablet) 10 mg PO DAILY FORMERLY [facility], [facility] Last Admin: 11/21/24 08:44 Dose: 10 mg Documented By: GERARDO Calcium Carbonate (Calcium Carbonate 750 Mg Tab.Chew) 750 mg PO Q4H PRN PRN Reason: Heartburn Clonazepam (Clonazepam 1 Mg Tablet) 1 mg PO BID PRN PRN Reason: Anxiety Last Admin: 11/21/24 11:52 Dose: 1 mg Documented By: GERARDO Enoxaparin Sodium (Enoxaparin Sodium 40 Mg/0.4 Ml Syringe) 40 mg SUBCUT BEDTIME FOR[facility]LY [facility], [facility]1983 Last Admin: 11/20/24 20:09 Dose: 40 mg Documented By: IDALMIS Fluoxetine HCl (Fluoxetine Hcl 10 Mg Capsule) 10 mg PO DAILY FOR[facility]LY [facility], [facility]1983 Last Admin: 11/21/24 08:44 Dose: 10 mg Documented By: GERARDO Hydroxyzine HCl (Hydroxyzine Hcl 50 Mg Tablet) 50 mg PO Q8H PRN PRN Reason: Anxiety Clindamycin Phosphate (Cleocin) 600 mg in 50 mls @ 100 mls/hr IV Q8H FOR[facility]LY [facility], [facility] Last Infusion: 11/21/24 12:49 Dose: Infused Documented By: GERARDO Magnesium Hydroxide (Milk Of Magnesia 30 Ml Oral.Susp) 30 ml PO DAILY PRN PRN Reason: Constipation Melatonin (Melatonin 3 Mg Tablet) 6 mg PO BEDTIME PRN PRN Reason: Insomnia Omeprazole (Omeprazole 20 Mg Capsule.Dr) 20 mg PO DAILY@30 [facility], [facility] Last Admin: 11/21/24 05:41 Dose: 20 mg Documented By: IDALMIS Ondansetron HCl (Ondansetron Hcl 4 Mg/2 Ml Vial) 4 mg IVPUSH Q8H PRN PRN Reason: Nausea and Vomiting Sodium Chloride (0.9 % Sodium Chloride Flush 3 Ml Syringe) 3 ml IVFLUSH QSHIFT [facility] Last Admin: 11/21/24 09:27 Dose: 3 ml Documented By: GERARDO Labs 11/21/24 05:47 11/21/24 05:47 Labs: Laboratory Results - last 24 hr 11/21/24 05:47 MCV 91.2 MCH 28.9 MCHC 31.7 RDW 15.4 Plt Count 263 D MPV 11.0 Immature Gran % (Auto) 0.4 Neut % (Auto) 82.7 H Lymph % (Auto) 9.4 L [place] % (Auto) 6.7 Eos % (Auto) 0.6 Baso % (Auto) 0.2 Lymph # (Auto) 1.2 [place] # (Auto) 0.9 Eos # (Auto) 0.1 Baso # (Auto) 0.0 Abs Immat Gran (auto) 0.05 H Absolute Neuts (auto) 10.6 H Absolute Nucleated RBC 0.000 Nucleated RBC % (auto) 0.0 Anion Gap 13 Estim Creat Clear Calc 130.9 Estimated GFR > 60 Random Glucose 129 H Calcium 8.9 Microbiology Microbiology Results: Microbiology 11/20/24 00:34 Gram Stain - Final Ankle Aspirate - Right Anaerobic Culture - Preliminary No growth to date. Gross Specimen Examination - Final Fluid Crystals - Final Joint Fluid Culture - Preliminary No growth to date. 11/19/24 22:59 Blood Culture - Preliminary Blood - Venous No growth after 24 hours. 11/19/24 22:51 Blood Culture - Preliminary Blood - Venous No growth after 24 hours. Assessment and Plan (1) Cellulitis: Status: Acute Plan Patient is a 39-year-old male with past medical history right hip surgical repair, unexplained weight loss, illicit drug use including crack cocaine but denies recent IV drug abuse, marijuana use, former tobacco user is being admitted with cellulitis of right lower extremity with possible synovitis. Unclear how the infection started but patient does have history of IV drug abuse and currently appears under the influence of illicit drugs. Currently patient can not provide a thorough history of his past medical history and surgical history. Patient does live with his mother but there was no answer tonight to review history. Cellulitis right ankle Not septic Aspiration (Ankle\Knee) sent for cultures - joint fluid culture pending, no crystals seen, no organisms seen Blood cultures negative at 24 hours He had severe reaction to vancomycin as hives, Dcd On IV linezolid and Ceftriaxone. 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 added Daily weights DVT prophylaxis: Lovenox PPI prophylaxis: Omeprazole Full Code The patient will need overnight stay for treatment of Cellulitis on IV antibiotics and monitor for possible cocaine\opioid abuse Quality Stroke Does the patient have a stroke diagnosis?: No Reason for No Anti-thrombotic by Day Two: N/A - Med Ordered VTE Prior VTE?: No VTE Risk Level:: Medical - moderate - high VTE Device Contraindication: Treatment Not Tolerated VTE Drug Contraindication: N/A - Med Ordered
--- NOTE | 2024-11-21 14:00 | PM.DS ---
DS: Providers Provider Date of Service: 11/21/24 Date of admission: 11/20/24 00:45 Date of discharge: 11/21/24 Primary care physician: Barry Villegas MD Consults: 11/20/24 01:47 Addiction Medicine Provider Routine Consulting Provider: Addiction Covering Reason for consultation: Crack cocaine use, weight loss 11/21/24 09:46 Consult to Orthopedics Routine Consulting Provider: [facility] Reason for consultation: right ankle pain; splint applied in ED Has provider been notified: No Attending physician on discharge: Justo Adames Discharging clinician: Vira Tejeda DS: Diagnosis Discharge Diagnosis (1) Cellulitis: Status: Acute DS: Summary Hospital Course Hospital Course: From H&P on the day of admission Patient is a 39-year-old male with past medical history right hip surgical repair, unexplained weight loss, illicit drug use including crack cocaine but denies recent IV drug abuse, marijuana use, former tobacco user presents with 2 days of right foot discomfort with inability ambulate. Patient had just undergone conscious sedation with ED provider for aspiration and culture collection of a lateral cellulitis along the malleolus. Patient has been afebrile with no chills. Patient does have a leukocytosis of 20, lactic acid 1.1, CRP 4.[address] of the ankle notes extensive edema and cellulitis within the superficial soft tissues overlying visualized hindfoot and ankle. There is no drainable abscess or fluid collection and no soft tissue emphysema present. The affected leg is currently wrapped, this check writer salesperson is unable to view the area. There is a question of synovitis along with a known cellulitis. There is no evidence of swelling or edema or warmth in any of the other joints including the knees left ankle and upper extremities. Patient was started on vancomycin in the emergency department and upon infusion, developed severe hives in the affected arm. Patient had no respiratory symptoms including stridor. Vancomycin was stopped due to the severity of hives. Did not feel comfortable knowing rate and continuing infusion. Antibiotics changed to linezolid and ID consultation placed. Blood cultures are also pending. Patient is somewhat elusive regarding his recent drug use. Patient states he was an IV drug abuser 10 years prior. Patient does not know was HIV or hepatitis status sudden is okay with testing today. Patient does not know how this cellulitis developed in his right lower leg. Per ED provider there were no track breaux on his affected leg. It is not 100% sure that patient did not inject drugs into the affected limb. Patient is currently wired, anxious and states this happens when he uses drugs. His drug of choice is crack cocaine. Toxicology screen pending. There was no murmur on exam. Patient does state he was in [facility] 2 months prior and was told he had a cardiac problem was supposed to follow with a photographic equipment mechanic as an outpatient but patient failed to do so. Currently on telemetry patient has sinus rhythm. EKG will be ordered. Patient will remain on telemetry. Cellulitis right ankle Not septic Aspiration (Ankle\Knee) sent for cultures - joint fluid culture pending, no crystals seen, no organisms seen Blood cultures negative at 24 hours He had severe reaction to vancomycin as hives, Dcd On IV linezolid and Ceftriaxone switched to CLindamycin only as he is at risk of serotonin syndrome with Zyvox 11/21 pt elected to leave AMA, in order to minimize harm we will send antibiotics to the pharmacy. 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 Methadone\suboxone offered by addiction team Time Attestation Discharge Coordination Time (in mins): 35 Quality: Safe Use of Opioids Does Pt have an Active Cancer Diagnosis on the Problem List?: No Quality: Stroke Does the patient have a stroke diagnosis?: No Physical Exam Vital Signs: Vital Signs: Last Vital Signs Temp 97.9 F 11/21/24 12:00 Pulse 94 11/21/24 12:00 Resp 16 11/21/24 12:00 BP 136/83 11/21/24 12:00 Pulse Ox 100 11/21/24 12:00 O2 Del Method Room Air 11/21/24 12:00 Oxygen Flow Rate 0 11/20/24 01:00 BMI result Body Mass Index 20.1 Const: General: cooperative, alert and awake Nutritional Appearance: average body habitus Orientation/consciousness: patient oriented x3 Resp: Effort & Inspection: normal respiratory effort, able to speak in complete sentences, no respiratory distress and no use of accessory muscles Cardio: Rate: regular rate Skin: Other: right foot and ankle with swelling and erythema; no brusing Neuro: General: patient oriented x3, moves all extremities and CN's II-XI intact bilaterally DS: Data Data Completed and Pending Labs on day of discharge: Laboratory Results - last 24 hr 11/21/24 05:47 WBC 12.8 H RBC 4.19 L Hgb 12.1 L Hct 38.2 L MCV 91.2 MCH 28.9 MCHC 31.7 RDW 15.4 Plt Count 263 D MPV 11.0 Immature Gran % (Auto) 0.4 Neut % (Auto) 82.7 H Lymph % (Auto) 9.4 L [place] % (Auto) 6.7 Eos % (Auto) 0.6 Baso % (Auto) 0.2 Lymph # (Auto) 1.2 [place] # (Auto) 0.9 Eos # (Auto) 0.1 Baso # (Auto) 0.0 Abs Immat Gran (auto) 0.05 H Absolute Neuts (auto) 10.6 H Absolute Nucleated RBC 0.000 Nucleated RBC % (auto) 0.0 Sodium 140 Potassium 4.0 Chloride 107 Carbon Dioxide 24 Anion Gap 13 BUN 9 Creatinine 0.68 Estim Creat Clear Calc 130.9 Estimated GFR > 60 Random Glucose 129 H Calcium 8.9 Preliminary micro results at discharge 11/20/24 00:34 Anaerobic Culture - Preliminary Ankle Aspirate - Right No growth to date. Joint Fluid Culture - Preliminary No growth to date. 11/19/24 22:59 Blood Culture - Preliminary Blood - Venous No growth after 24 hours. 11/19/24 22:51 Blood Culture - Preliminary Blood - Venous No growth after 24 hours. Discharge Plan Discharge Anticipated Discharge Date/Time: 11/21/24 14:06 Patient Disposition: Left Against Medical Advice Discharge Diagnosis: right ankle/foot cellulitis Referrals: Barry Villegas MD [Primary Care Provider, Internal Medicine] - 1 Week Discharge Medications: New doxycycline monohydrate 100 mg tablet 100 mg PO BID 7 Days Qty: 14 0RF amoxicillin-pot clavulanate 875-125 mg tablet 1 tab PO Q12H 7 Days Qty: 14 0RF No Action clonazepam 0.5 mg tablet 1 mg PO BID PRN (Reason: anxiety) fluoxetine 10 mg capsule 10 mg PO DAILY aripiprazole 10 mg tablet 10 mg PO QAM Discharge Orders: Discharge Order (Routine); Ordered 06/26/25 Ordered By: Vira Tejeda Print Language: Unable To Collect Care Plan Goals: see below Health Concerns: right ankle/foot cellulitis Plan of Treatment: you have elected to leave the hospital against medical advice in order to minimize risk - will send antibiotics to the pharmacy. Please complete entire course of antibiotics Final wound culture pending Call to schedule follow-up appointment with PCP Assessment: Left against medical advice
--- NOTE | 2024-11-21 14:34 | PC.NURSE ---
Elvin wanted pt to stay one more day for I.V. antibiotic treatment. Pt insisted in going home AMA. Elvin aware. Pt tele and IV removed. Pt left floor at 14:30
== END 2024-11-21 14:34 | disposition left against medical advice (07) | DRG 383 ==
LOC: HO.ED 22:30 → HO.EDOVER 11-20 01:00 → HO.S3 11-20 07:28
PROVIDERS: Nurse Practitioner Family; Student in an Organized Health Care Education/Training Program; Admitting Provider Student in an Organized Health Care Education/Training Program; Emergency Provider Emergency Medicine; PCP Internal Medicine; Visit Provider Physician Assistant Medical
DX: L03.115 Cellulitis of right lower limb (principal); E87.6 Hypokalemia; F14.10 Cocaine abuse, uncomplicated; L50.0 Allergic urticaria; T36.8X5A Adverse effect of other systemic antibiotics, initial encounter; Z87.891 Personal history of nicotine dependence; Z79.899 Other long term (current) drug therapy
CPT/HCPCS: 36415; 73700; 80048; 80053; 80307; 81003; 83605; 83735; 84550; 85025; 85652; 86140; 86704; 86706; 86709; 86803; 87040; 87070; 87073; 87205; 87340; 87389; 89060; 93005; 99285; J0131; J0696; J0736; J1650; J2020; J2704; J3371

== ENCOUNTER → 2024-11-19 22:42 | Outpatient (BNV) | payer OTHER, SELFPAY | PROVIDERS: Admitting Provider Student in an Organized Health Care Education/Training Program; Emergency Provider Emergency Medicine; PCP Internal Medicine; Visit Provider Radiology Diagnostic Radiology | DX: R22.41 Localized swelling, mass and lump, right lower limb (principal) | CPT/HCPCS: 73700 ==

== ENCOUNTER 2024-11-20 00:45 | Outpatient (BNV) | payer OTHER, SELFPAY | END 2024-11-20 02:48 | PROVIDERS: Admitting Provider Student in an Organized Health Care Education/Training Program; Emergency Provider Emergency Medicine; PCP Internal Medicine; Visit Provider Internal Medicine | DX: Z13.6 Encounter for screening for cardiovascular disorders (principal) | CPT/HCPCS: 93010 ==

== ENCOUNTER → 2024-11-20 00:45 | Outpatient (BNV) | payer OTHER, SELFPAY | PROVIDERS: Admitting Provider Student in an Organized Health Care Education/Training Program; Emergency Provider Emergency Medicine; PCP Internal Medicine; Visit Provider Nurse Practitioner Family | DX: L03.115 Cellulitis of right lower limb (principal) | CPT/HCPCS: 99239 ==

== ENCOUNTER → 2024-11-20 00:45 | Outpatient (BNV) | payer OTHER, SELFPAY | PROVIDERS: Admitting Provider Student in an Organized Health Care Education/Training Program; Emergency Provider Emergency Medicine; PCP Internal Medicine; Visit Provider Nurse Practitioner Psychiatric/Mental Health | DX: F14.10 Cocaine abuse, uncomplicated (principal) | CPT/HCPCS: 99221 ==